=== PATIENT | female | born 1980 | race Native Hawaiian/Other Pacific Islander ===

== ENCOUNTER 2021-11-22 10:55 | Outpatient (CLI) | payer BC | END 2021-11-22 21:18 | disposition home or self-care (01) | LOC: RAD 10:55 | PROVIDERS: ATTEND Nurse Practitioner Family | DX: M06.4 Inflammatory polyarthropathy (principal); R53.83 Other fatigue; R76.0 Raised antibody titer ==

== ENCOUNTER 2022-10-20 11:06 | Outpatient (CLI) | payer BC ==
[2022-10-20 11:52] LABS: PLATELET COUNT 219 K/uL (152-353)
[2022-10-20 12:20] LABS: POTASSIUM 4.3 mmol/L (3.6-5.2)
== END 2022-10-20 22:47 ==
LOC: LABW 11:06
PROVIDERS: ATTEND Surgery Plastic and Reconstructive Surgery
DX: Z01.818 Encounter for other preprocedural examination (principal); Z79.899 Other long term (current) drug therapy; D51.8 Other vitamin B12 deficiency anemias; E55.9 Vitamin D deficiency, unspecified; Z86.39 Personal history of other endocrine, nutritional and metabolic disease; E03.8 Other specified hypothyroidism; R79.82 Elevated C-reactive protein (CRP); D52.0 Dietary folate deficiency anemia; D64.89 Other specified anemias; Z09 Encounter for follow-up examination after completed treatment for conditions other than malignant neoplasm
CPT/HCPCS: 36415; 80048; 82306; 82607; 82728; 83090; 83540; 83550; 83735; 84270; 84425; 84436; 84439; 84443; 84481; 84630; 85027; 86140; 86376

== ENCOUNTER 2023-01-27 18:59 | Outpatient (CLI) | payer BC ==
[2023-01-27 20:55] LABS: PLATELET COUNT 282 K/uL (152-353)
[2023-01-27 21:10] LABS: POTASSIUM 4.1 mmol/L (3.6-5.2)
== END 2023-01-27 22:10 | disposition home or self-care (01) ==
LOC: LABW 18:59
PROVIDERS: ATTEND Surgery Plastic and Reconstructive Surgery
DX: Z01.818 Encounter for other preprocedural examination (principal); E28.39 Other primary ovarian failure; R89.1 Abnormal level of hormones in specimens from other organs, systems and tissues; R94.6 Abnormal results of thyroid function studies; Z79.899 Other long term (current) drug therapy; D68.8 Other specified coagulation defects; D51.3 Other dietary vitamin B12 deficiency anemia; E55.9 Vitamin D deficiency, unspecified; Z86.39 Personal history of other endocrine, nutritional and metabolic disease; Z86.16 Personal history of COVID-19; E03.8 Other specified hypothyroidism; D64.89 Other specified anemias; Z13.29 Encounter for screening for other suspected endocrine disorder; E59 Dietary selenium deficiency; E61.0 Copper deficiency; R76.8 Other specified abnormal immunological findings in serum
CPT/HCPCS: 36415; 80053; 82306; 82390; 82525; 82607; 82728; 83090; 83540; 83550; 83789; 84255; 84439; 84443; 84445; 84481; 84482; 85027; 86376; 86800

== ENCOUNTER 2023-02-09 08:02 | Outpatient (CLI) | payer BC | END 2023-02-09 21:11 | disposition home or self-care (01) | LOC: LABW 08:02 | PROVIDERS: ATTEND Nurse Practitioner Family | DX: R79.89 Other specified abnormal findings of blood chemistry (principal) | CPT/HCPCS: 36415; 84439; 84443; 84445; 84481; 86376 ==